=== PATIENT | male | born 1960 | race Caucasian/White ===

== ENCOUNTER 2018-10-28 10:24 | Day surgery (SDC) | payer OTHER ==
[~2018-10-28] VITALS: Ht 175.3 cm; Wt 79.7 kg
[2018-10-28] MEDS ORDERED: LACTATED RINGERS 1,000 ML IV SCH (11:04)
[2018-10-28] MEDS ORDERED: PANT20TA2 PO (11:06)
[2018-10-28] MEDS ORDERED: SIMV40TA3 PO (11:06)
[2018-10-28] MEDS ORDERED: AMLO-150 PO (11:06)
[2018-10-28] MEDS ORDERED: LISI-170 PO (11:06)
[2018-10-28] MEDS ORDERED: TELM1TAB3 PO (11:06)
[2018-10-28 11:42] VITALS: BP 159/113
[2018-10-28] MEDS ORDERED: DEXAMETHASONE 4 MG/ML, 1ML ONE (12:26)
[2018-10-28] MEDS ORDERED: PROPOFOL 10 MG/ML, 20ML ONE (12:26)
[2018-10-28] MEDS ORDERED: ONDANSETRON 2MG/ML, 2ML ONE (12:26)
[2018-10-28] MEDS ORDERED: EPHEDRINE 50 MG/ML, 1ML ONE (12:26)
[2018-10-28] MEDS ORDERED: FENTANYL PF 100 MCG/2ML ONE (12:28)
[2018-10-28] MEDS ORDERED: FENTANYL PF 100 MCG/2ML IV PRN (13:30)
[2018-10-28] MEDS ORDERED: OXYcodone 5 MG/5 ML ORAL.SOL UDC PO PRN (13:30)
[2018-10-28] MEDS ORDERED: LABETALOL 5MG/ML, 20ML IV PRN (13:30)
[2018-10-28] MEDS ORDERED: ONDANSETRON 2MG/ML, 2ML IV PRN (13:30)
[2018-10-28] MEDS ORDERED: hydrALAzine 20 MG/ML, 1ML ONE (13:32)
[2018-10-28] MEDS: hydrALAzine 20 MG/ML, 1ML IV PRN ×2 (13:36→14:06)
== END 2018-10-28 14:50 | disposition home or self-care (01) ==
LOC: OUT 10:24
PROVIDERS: ATTEND Internal Medicine Geriatric Medicine
DX: K86.2 Cyst of pancreas (principal); K52.831 Collagenous colitis; I51.9 Heart disease, unspecified; E78.5 Hyperlipidemia, unspecified; F17.210 Nicotine dependence, cigarettes, uncomplicated; Z98.890 Other specified postprocedural states; Z72.89 Other problems related to lifestyle; Z88.8 Allergy status to other drugs, medicaments and biological substances
CPT/HCPCS: 43242; 88172; 88173; 88177; 88307; 88341; 88342; 88360; J0360; J1100; J2405; J2704; J3010; J7120